=== PATIENT | male | born 1985 | race Caucasian/White ===

== ENCOUNTER → 2017-11-16 | Outpatient (CLI) | payer OTHER ==
--- NOTE | 2017-11-16 15:18 | RADIOLOGY REPORT (SQ) ---
EXAM DESCRIPTION: MRI LT LOWER JOINT COMBO COMPLETED DATE/TIME: 11/16/2017 2:02 pm REASON FOR STUDY: M16.12 UNILATERAL PRIMARY OSTEOARTHRITIS, LEFT HIP M16.12 UNILATERAL PRIMARY OSTE OARTHRITIS, LEFT HIP COMPARISON: Radiographs of the pelvis 07/03/2016. Prior MRI of the pelvis from 07/23/2016. TECHNIQUE: Multiplanar imaging of the pelvis and left hip to include T1-weighted, postcontrast T1-we ighted, and T2-weighted images. CONTRAST TYPE AND DOSE: 15 mL Prohance. RENAL FUNCTION: None required. The patient is less than 50 years old. LIMITATIONS: None. FINDINGS: BONE MARROW: No marrow edema identified on today's study. No marrow replacement. No susp icious bone lesion. No occult fracture. No evidence of AVN. JOINTS: Fairly symmetric maintained bilateral hip joint spaces. Trace left effusion relative to the right. No gross hip dysplasia or labral tear detected. SI joints are without erosions or significa nt edema today. Some sclerosis, particularly on the left. Some sequences suggest developing ankylos is. No abnormal enhancement along the SI joints today SOFT TISSUES: Intra and extrapelvic soft tissues are generally unremarkable. No mass or abnormal flu id. Decompressed bladder. No overt bursitis, mass or abnormal enhancement. OTHER: No other significant finding. IMPRESSION: 1. Evidence of chronic bilateral sacro ileitis. No edema or enhancement related to the SI joints today. 2. No evidence of hip AVN. TECHNICAL DOCUMENTATION: JOB ID: [id number] [employer]- All Rights Reserved
== END ==
LOC: RAD 12:11
PROVIDERS: ATTEND Internal Medicine
DX: M16.12 Unilateral primary osteoarthritis, left hip (principal)
CPT/HCPCS: 73723; A9576